=== PATIENT | male | born 1955 | race Caucasian/White ===

== ENCOUNTER → 2023-02-09 | Day surgery (SDC) | payer OTHER ==
[2023-02-07 16:05] LABS: Absolute Lymphocytes (CBC) 2.2 K/uL (0.7-4.9); Hematocrit 39.8 % (39.6-49.0); Lymphocytes % 23.7 % (15.3-44.8); MCV 83.6 fL (80-100); MPV 7.8 fL (7.6-11.3); RBC Red Blood Cell Count 4.76 M/uL (4.33-5.43)
--- NOTE | 2023-02-07 16:11 | RAD REPORT ---
EXAM DESCRIPTION: Mariama Christensen And Lat (2 Views)02/07/2023 4:01 pm CLINICAL HISTORY: Preop for cholecystectomy. Hypertension COMPARISON: None FINDINGS: An area scarring or subsegmental atelectasis is present the left lung base. The remainder of the lungs appear clear of acute infiltrate. The heart is normal size
[2023-02-07 16:16] LABS: Albumin 3.7 g/dL (3.4-5.0); Bilirubin Direct 0.1 mg/dL (0-0.2); Bilirubin Total 0.4 mg/dL (0.2-1.0); Potassium 4.2 mEq/L (3.5-5.1); Protein, Total 7.6 g/dL (6.4-8.2)
--- NOTE | 2023-02-08 13:00 | EKG ---
Test Date: 2023-02-07 Test Time: 15:40:22 [employer]er: DENISD MEASUREMENT RESULTS: Intervals: Rate: 98 [place]: 144 QRSD: 70 QT: 330 QTc: 421 [place]: P: 1 [place]: 144 QRS: 118 T: 62 INTERPRETIVE STATEMENTS: Sinus rhythm with sinus arrhythmia with fusion complexes Right axis deviation Low voltage QRS Abnormal ECG No previous ECG available for comparison Electronically Signed On 02-08-23 12:58:14 CDT by Sage Juarez
[~2023-02-09] MED LIST: NA CHLORIDE 0.9% 1,000 ML ONE
[2023-02-09 07:31] VITALS: BP 129/72; TEMP 98; O2SAT 99
== END ==
LOC: OR 06:59
PROVIDERS: ATTEND Surgery
DX: K80.20 Calculus of gallbladder without cholecystitis without obstruction (principal); K66.0 Peritoneal adhesions (postprocedural) (postinfection); Z53.09 Procedure and treatment not carried out because of other contraindication
CPT/HCPCS: 93005; 85025; 80048; 36415; 82947; 80076; 83690; 71046; J7030

== ENCOUNTER 2025-04-08 07:17 | Day surgery (SDC) | payer OTHER ==
--- NOTE | 2025-04-05 16:19 | RAD REPORT ---
EXAM: Chest Pa And Lat (2 Views) HISTORY: 69 years Male pre op COMPARISON: 02/17/2023 FINDINGS: LUNGS/PLEURA: The lungs are clear. No pleural effusions or pneumothorax. No pulmonary edema. CARDIAC/MEDIASTINUM: The cardiac silhouette is within normal limits. UPPER ABDOMEN: No significant abnormality. BONES: No acute abnormality. Bridging osteophytes in the spine. LINES/TUBES/OTHER: N/A IMPRESSION: No evidence of acute cardiopulmonary disease.
[2025-04-05 16:38] LABS: Anion Gap 9.7 mEq/L (5.0-15.0); Potassium 3.7 mEq/L (3.5-5.1)
[2025-04-05 18:59] LABS: Absolute Basophils 0.1 K/uL (0-0.5); Absolute Eosinophils 0.1 K/uL (0-0.5); Absolute Lymphocytes (CBC) 1.9 K/uL (0.7-4.9); Absolute Monocytes 0.5 K/uL (0.1-1.3); Absolute Neutrophil 4.6 K/uL (1.8-8.0); Basophils % 0.8 % (0-1.3); Eosinophils % 1.3 % (0-4.4); Hematocrit 44.3 % (39.6-49.0); Hemoglobin 15.3 g/dL (13.6-17.9); Lymphocytes % 26.7 % (15.3-44.8); MCH 29.4 pg (27.0-35.0); MCHC 34.5 g/dL (32.0-36.0); MCV 85.1 fL (80-100); MPV 7.7 fL (7.6-11.3); Monocytes % 6.9 % (3.3-12.3); Neutrophils % 64.3 % (41.7-73.7); Platelets 205 thou/uL (152-406); Red Cell Distribution Width 14.7 % (12.1-15.2)
[2025-04-08] MEDS: NA CHLORIDE 0.9% 1,000 ML ONE (07:45)
[2025-04-08] MEDS ORDERED: ROCURONIUM 50 MG/5 ML VIAL IV ONE (08:06)
[2025-04-08] MEDS ORDERED: dexAMETHasone 10 MG/ML VIAL ONE (08:06)
[2025-04-08] MEDS ORDERED: propofoL 200 MG/20 ML VIAL IV ONE (08:06)
[2025-04-08] MEDS ORDERED: ONDANSETRON 4 MG/2 ML VIAL ONE (08:06)
[2025-04-08] MEDS ORDERED: LIDOCAINE 2% MPF 5 ML VIAL ONE (08:06)
[2025-04-08] MEDS ORDERED: KETOROLAC 30 MG/ML INJ ONE (08:06)
[2025-04-08] MEDS ORDERED: MIDAZOLAM HCL 2 MG/2 ML INJ ONE (08:06)
[2025-04-08] MEDS ORDERED: FENTANYL CITR 100 MCG/2 ML ONE (08:06)
[2025-04-08] MEDS: CEFAZOLIN SODIUM 1 GM/VIAL ONE (08:47)
[2025-04-08] MEDS: Ringers Lactate 1,000 ML IV ONE (09:45)
[2025-04-08] MEDS ORDERED: SUGAMMADEX SODIUM 200 MG/2 ML VIAL IV ONE (09:46)
--- NOTE | 2025-04-08 10:02 | P.BOP ---
Preoperative diagnosis: incisional incarcerated ventral hernia Postoperative diagnosis: same, intrabdominal adhesions Primary procedure: Laparoscopic repair incisional incarcerated 7 cm ventral hernia with mesh Secondary procedure: Laparoscopic lysis of adhesions Estimated blood loss: <10cc Specimen: sac sample Findings: multiple ventral hernias Anesthesia: General Complications: None Implants: Ventralight ST with ECHO 20x15 cm Transferred to: Recovery Room Condition: Good
[2025-04-08 10:55] VITALS: BP 123/53; TEMP 97.5; O2SAT 98
[2025-04-08] MEDS: TRAMADOL 37.5mg/APAP 325mg PER TAB ONE (11:06)
== END 2025-04-08 11:29 | disposition home or self-care (01) ==
LOC: OR 07:17
PROVIDERS: ATTEND Surgery
PROC: 0WUF4JZ Supplement Abdominal Wall with Synthetic Substitute, Percutaneous Endoscopic Approach (ICD-10-PCS; principal; 2025-04-08 08:30)
DX: K43.6 Other and unspecified ventral hernia with obstruction, without gangrene (principal)
CPT/HCPCS: 85025; 80048; 36415; 82947 ×2; 88302; 71046; 49594; A4314; J2704; J2003; J2250; J3010; J1100; J2405; J7120; J7030; J0690